=== PATIENT | female | born 1960 | race Caucasian/White ===

== ENCOUNTER 2017-04-29 17:27 | Inpatient (IN) | payer OTHER ==
[~2017-04-29] VITALS: Ht 162.6 cm; Wt 73.5 kg
[2017-04-29] MEDS ORDERED: ONDANSETRON 4 MG/2 ML VIAL IM PRN (19:45)
[2017-04-29] MEDS ORDERED: LORAZEPAM 1 MG TABLET PO PRN ×2 (19:45)
[2017-04-29] MEDS ORDERED: MIRALAX 17 GM POWD.PACK PO PRN (19:45)
[2017-04-29] MEDS ORDERED: DICYCLOMINE HCL 20 MG TABLET PO PRN (19:45)
[2017-04-29] MEDS ORDERED: ACETAMINOPHEN 325 MG TABLET PO PRN (19:45)
[2017-04-29] MEDS ORDERED: THIAMINE HCL 200 MG/2 ML VIAL IM ONE (19:45)
[2017-04-29] MEDS ORDERED: MAGNESIUM HYDROXIDE 30 ML LIQUID UDC PO PRN (19:45)
[2017-04-29] MEDS ORDERED: MAG HYDROX/AL HYDROX/SIMETH 30 ML LIQUID UDC PO PRN (19:45)
[2017-04-29] MEDS ORDERED: NICOTINE 14 MG/24HR PATCH TD PRN (19:45)
[2017-04-29] MEDS ORDERED: NICOTINE POLACRILEX 4 MG GUM-PK OF TEN BC PRN (19:45)
[2017-04-29] MEDS ORDERED: diphenhydrAMINE 50 MG CAPSULE PO PRN (19:45)
[2017-04-29] MEDS ORDERED: ONDANSETRON ODT 4 MG TAB.RAPDIS SL PRN (19:45)
[2017-04-29] MEDS ORDERED: LOPERAMIDE HCL 2 MG CAPSULE PO PRN ×2 (19:45)
[2017-04-29] MEDS ORDERED: LORAZEPAM 2 MG/1 ML VIAL IM PRN (19:45)
[2017-04-29 20:28] LABS: *URINE HCG, QUAL NEGATIVE (NEGATIVE)
[2017-04-29 20:30] VITALS: BP 154/90
[2017-04-29 20:31] LABS: BASOPHILS % (AUTO) 0.4 % (0.0-2.0); EOSINOPHILS # (AUTO) 0.1 K/uL (0.0-0.7); HEMATOCRIT 47.2 % (31.2-41.9); HEMOGLOBIN 16.4 g/dL (10.9-14.3); LYMPHOCYTES # (AUTO) 2.5 K/uL (20.0-40.0); LYMPHOCYTES % (AUTO) 23.8 % (20.5-51.5); MEAN CORPUSCULAR HGB CONC 35 g/dL (32.3-35.6); MEAN CORPUSCULAR VOLUME 92.1 fL (75.5-95.3); MONOCYTES # (AUTO) 0.9 K/uL (2.0-10.0); MONOCYTES % (AUTO) 8.4 % (0.0-11.0); NEUTROPHILS # (AUTO) 7.1 K/uL (1.8-8.9); NEUTROPHILS % (AUTO) 66.4 % (38.5-71.5); PLATELET COUNT (AUTO) 326 K/uL (179-408); RED BLOOD CELL COUNT(AUTO) 5.13 MIL/uL (3.63-4.92); WHITE BLOOD COUNT (AUTO) 10.6 K/uL (3.8-11.8)
[2017-04-29 20:35] LABS: *AMPHETAMINE, URINE NEGATIVE (NEGATIVE); *BARBITURATE, URINE NEGATIVE (NEGATIVE); *CANNABINOID, URINE NEGATIVE (NEGATIVE); *COCCAINE, URINE POSITIVE (NEGATIVE); *OPIATE, URINE NEGATIVE (NEGATIVE); *PHENCYCLIDINE SCREEN,URINE NEGATIVE (NEGATIVE)
--- NOTE | 2017-04-29 20:35 | NUR ---
PRE-ADMISSION NOTE Patient is a 57-year-old female seen at intake, alert and oriented x4, no SOB or chest pain reported at this time. Patient reports feeling tired and anxious. SN discussed admission policies with patient and briefly discussed unit policies. Patient is coherent and able to respond to questions appropriately. Patient is ambulatory with a steady gait. Vital signs taken, as follows: BP: 154/90, P: 93, R: 18, O2: 96%, T: 98.4, pain: 0/10. Patient verbalized understanding of instructions and teachings regarding: disposal of narcotics and other controlled home medications, unit protocols such as taking of vital signs Q4H and handling and disposal of contraband. SN will continue with admission upon pts arrival on the unit.
[2017-04-29 20:45] LABS: ETHANOL < 3 MG/DL (0-0)
[2017-04-29 20:52] LABS: ALANINE AMINOTRANSFERASE 38 U/L (14-59); ALKALINE PHOSPHATASE 185 U/L (50-136); AMYLASE 41 U/L (25-115); ASPARTATE AMINOTRANSFERASE 29 U/L (15-37); BILIRUBIN,TOTAL 0.5 mg/dL (0.2-1.0); CARBON DIOXIDE 30 mmol/L (21-32); CHLORIDE 99 mmol/L (98-107); GLUCOSE 140 mg/dL (74-106); MAGNESIUM 1.9 mg/dL (1.8-2.4); POTASSIUM 3.2 mmol/L (3.5-5.1); TOTAL PROTEIN, SERUM 8.4 g/dL (6.4-8.2); UREA NITROGEN, BLOOD 16 mg/dL (7-18)
[2017-04-29] MEDS: ATORVASTATIN 10 MG PO SCH (21:34)
--- NOTE | 2017-04-29 21:45 | NUR ---
ADMISSION NOTE Patient is a 57-year-old female admitted on 04/29/17 for ETOH dependence. She arrived on the unit at 2049. Patient was able to provide urine for UDS before arriving on the unit. Upon arrival to the unit, skin assessment and body check was completed. Patient is FULL code status, on a regular diet, with allergies to morphine. Patient reports a past medical history of anxiety, depression, HTN, GERD, fatty liver, herniated disk, hypercholesterolemia, rectal prolapsed, and has had 2 surgeries R/T her rectal prolapse. Patient denies seizure history. Vital signs are as follows: BP: 154/90, P: 93, R: 18, O2: 96%, T: 98.4, pain: 0/10. Patient is 55 and weighs 162 lbs. Patient reports she has a PCP in [place], where she is from. Patient states she smokes about a pack of cigarettes a day. Patient denies being hospitalized or in detention within the past 30 days. Patient brought omeprazole, hydrochlorothiazide, and atorvastatin from home stating that the last dose for each was yesterday. Substance Abuse History is as follows: 1. Beer 4-5 bottles/cans daily. Last intake of 2-3 cans was today, day of admission, about 4 hours before arrival. Patient has been drinking beer at this rate for about 2-3 years. 2. Vodka 400-500mL daily, last intake of 400mL was yesterday, 04/28/17. Patient has been drinking vodka at this rate for about 2-3 years. 3. Cocaine gram daily via smoke inhalation daily. Last intake of gram was 04/28/17. At this rate for 3-4 weeks. Patients longest period of sobriety was for 12, which ended 13 years ago. Since then, patient has been drinking larger amounts/daily every passing year. Patient reports that this is her first time in treatment, in detox of any kind. Patient reports that alcoholism runs in the family on both her mothers side and fathers side. Patient states that her brother and one of her sisters struggle with drug and alcohol (ETOH) abuse. Upon assessment, patient is alert and oriented x4, steady gait, no SOB or chest pain reported. Patient reports feeling very tired and moderate anxiety. Upon assessment of patients skin, two scabs were noted, one located at patients right upper back and the other at the patients lower back on the right-hand side. Patients respirations are even and unlabored. Bowel sounds are active x 4, abdomen soft and non-tender. PERRLA bilaterally. Pt denies SI/HI at this time. Educational information provided and left at bedside. Patient was oriented to room and unit and was encouraged to notify staff/nurse with any concerns or questions. Patient is on fall and seizure precautions, safety measures in place. Call light within reach, side rails up x 2, bed locked and in low position. Will continue to monitor.
[2017-04-29] MEDS ORDERED: LORAZEPAM 1 MG TABLET PO SCH (22:00)
[2017-04-29] MEDS ORDERED: POTASSIUM CHLORIDE 20 MEQ TAB.PRT.SR PO ONE (22:30)
[2017-04-30] VITALS: BP 148/88
[2017-04-30] MEDS ORDERED: HYDR25TA4 PO (02:53)
[2017-04-30] MEDS ORDERED: OMEP40CA37 PO (02:53)
[2017-04-30] MEDS ORDERED: ATOR10TA PO (02:54)
[2017-04-30 04:00] VITALS: BP 142/84
--- NOTE | 2017-04-30 04:00 | NUR ---
CIWA DEFERRED CIWA deferred due to patient asleep, to be assessed and scored while patient is awake. Patient's respirations are even and unlabored, 16/min. Safety measures in place, call light within reach. Will continue to monitor.
--- NOTE | 2017-04-30 07:10 | NUR ---
END OF SHIFT Patient is a 57-year-old female admitted on 04/29/17 for ETOH dependence and withdrawal, with concurrent use of cocaine for the past 4 weeks. Patient is FULL code status, on a regular diet with allergies to morphine. Patient has past medical history of anxiety, depression, HTN, GERD, fatty liver, herniated disk, hypercholesterolemia, rectal prolapsed, and has had 2 surgeries R/T her rectal prolapse. Patient denies seizure history. Patient is scheduled to start a 5-day Ativan taper today. Patient slept for 6 hours, total intake of 1,355 mL, void x2, stool x0. Patient received no PRNs. Last CIWA was 5. Patient is on fall and seizure precautions. Safety measures in place, bed locked in low position, side rails up x2, call light within reach. Will endorse to day shift.
--- NOTE | 2017-04-30 07:11 | NUR ---
Start of Shift Notes: Received report from night nurse. Patient is a 57 year old female admitted for ETOH and cocaine depednence who was placed on a 5-day Ativan taper as ordered. Allergic to morphine. FULL CODE. Regular diet. On fall and seizure precautions. Reports past medical hx of anxiety, depression, GERD, herniated disc, rectal prolapse, fatty liver, HTN and hypercholesterolemia. Patient is alert and oriented x 4. Verbally responsive. Appears drowsy upon waking. Noted with gross tremors and sweating. Educated patient on her current plan of care for the day and her medication regimen. Encouraged oral fluid intake and encouraged group participation to learn new skills to prevent relapse. Will continue to monitor.
[2017-04-30] MEDS: OMEPRAZOLE 40 MG PO SCH (07:16)
[2017-04-30] MEDS ORDERED: PARO40TA4 PO (07:51)
[2017-04-30] MEDS ORDERED: GABA-534 PO (07:51)
[2017-04-30 08:00] VITALS: BP 170/98
[2017-04-30] MEDS: LORAZEPAM 1 MG TABLET PO SCH ×3 (08:27→20:09)
[2017-04-30] MEDS: CLONIDINE HCL 0.1 MG TABLET PO PRN (08:27)
[2017-04-30] MEDS: THIAMINE HCL 100 MG TABLET PO SCH (08:27)
[2017-04-30] MEDS: FOLIC ACID 1 MG TABLET PO SCH (08:27)
[2017-04-30] MEDS: HYDROCHLOROTHIAZIDE 25 MG PO SCH (08:27)
[2017-04-30] MEDS: MULTIVITAMINS,THERAPEUTIC TABLET PO SCH (08:27)
--- NOTE | 2017-04-30 08:27 | NUR ---
Clonidine 0.1mg PO given: Patient's blood pressure 170/98, Pulse 82 while at rest. CIWA 12, noted with gross tremors, anxiety and sweating. Medicated patient with Clonidine 0.1mg PO as ordered. Will monitor for effectiveness.
[2017-04-30] MEDS ORDERED: TUBERCULIN,PURIF.PROT.DERIV. 5 TU/0.1 ML TEST ID ONE (09:00)
--- NOTE | 2017-04-30 09:27 | NUR ---
Re-assesment: Clonidine Patient's blood pressure 140/81, Pulse 81. Addendum: 04/30/17 at 1006 by CL MENDIOLA LVN PRN Clonidine was effective in reducing patient's blood pressure.
[2017-04-30 12:00] VITALS: BP 138/85
[2017-04-30] MEDS: AMLODIPINE 5 MG TABLET PO SCH (13:25)
[2017-04-30 16:00] VITALS: BP 126/78
--- NOTE | 2017-04-30 19:11 | NUR ---
End of Shift Notes: Patient initiated her 5-day Ativan taper today as ordered. Patient is tolerating taper well. No adverse reactions noted. VS monitored closely q 4 hours and PRN. Noted with BP at 0800 170/98, Pulse 82. Medicated patient with Clonidine 0.1 mg PO as ordered with help after 1 hour. Started on Norvasc as ordered. Withdrawal symptoms were closely monitored. Initial CIWA 12, patient presented with sweating, tremors, pupil dilation, fatigue, gross tremors, and elevated BP. Last CIWA 7. Per patient, Ativan has been effective in reducing her withdrawal symptoms. Denies S/I or H/I. No AV hallucinations noted. Unable to participate in group and activities due to her withdrawal symptoms. All needs met and attended. Will continue to monitor closely.
--- NOTE | 2017-04-30 19:15 | NUR ---
Start of Shift Note: Patient is a 57 y.o female admitted on 04/29/17 for Alcohol dependence. Patient reported drinking 4-5 beers and half a bottle of vodka daily for 2-3 years. Patient also reported using 0.5 grams of cocaine and intermittent use of Marijuana. Patient has PMHx of Anxiety, Depression, GERD, Herniated disk, Rectal prolapsed, Fatty liver, HTN, and Hypercholesterolemia. Patient is on a regular diet with allergies to Morphine. Full Code status. Patient is on a 5-day Ativan taper and tolerating well. Last CIWA is 7. Patient received PRN Clonidine during day shift. Patient is alert & oriented x4. No shortness of breath noted. Respiration even & unlabored. Abdomen soft & non-distended. No N/V/D noted. Patient denies any pain/discomfort. Slight sweating and bilateral hand tremors noted. Denies any hallucinations. Safety precautions are in place. Bed locked in lowest position. Both side rails up. Call light within pt's reach. Will continue to monitor patient.
[2017-04-30 20:00] VITALS: BP 114/68
[2017-04-30] MEDS: ATORVASTATIN 10 MG PO SCH (20:09)
[2017-04-30] MEDS: PAROXETINE HCL 20 MG TABLET PO SCH (20:09)
[2017-04-30] MEDS ORDERED: GABAPENTIN 300 MG PO SCH (21:00)
[2017-05-01 04:00] VITALS: BP 117/67
[2017-05-01] MEDS: OMEPRAZOLE 40 MG PO SCH (06:39)
[2017-05-01 06:49] LABS: BILIRUBIN,DIRECT 0.1 mg/dL (0.0-0.2); BILIRUBIN,TOTAL 0.4 mg/dL (0.2-1.0); CREATININE 0.7 mg/dL (0.6-1.3); MAGNESIUM 2.3 mg/dL (1.8-2.4); POTASSIUM 3.6 mmol/L (3.5-5.1); TOTAL PROTEIN, SERUM 7.3 g/dL (6.4-8.2)
--- NOTE | 2017-05-01 07:09 | NUR ---
End of Shift Note: Patient is a 57 y.o female admitted on 04/29/17 for Alcohol dependence. Pt continues her Ativan taper with no A/R noted and tolerating well. Pt reports that taper medication is effective in decreasing s/sx of withdrawal. Patient had an uneventful night. Patient presented with sweating, anxiety & fine tremors. Patient's Last CIWA is 6. No PRN medications received during my shift. Patient remained compliant with medications and treatment plan. Continued to monitor signs and symptoms of withdrawal. Patient remained stable with No s/s of distress noted. Patient slept for a total of 9 hours. Fluid intake: 500 ml. Voided 1x with no bowel movement. Encourage pt to increase fluid intake. All needs attended & met. Safety measures in place. Will endorse pt to day shift nurse.
--- NOTE | 2017-05-01 07:28 | NUR ---
START OF SHIFT Pt 57 y/o female admitted for etoh withdrawal. Pt received in room on bed with eyes closed resting, but easily arousable to name. Pt alert and oriented to name, place, and time. Perrla. Skin warm and slightly moist to touch. Respirations even and unlabored. Bilateral hand tremors noted slightly. It was reported that pt slept for 9 hours last night. Bed on lowest position with side rails x2 up for safety. Call light within reach. No distress noted at this time.
[2017-05-01 08:00] VITALS: BP 125/80
[2017-05-01] MEDS: AMLODIPINE 5 MG TABLET PO SCH (08:15)
[2017-05-01] MEDS: FOLIC ACID 1 MG TABLET PO SCH (08:15)
[2017-05-01] MEDS: MULTIVITAMINS,THERAPEUTIC TABLET PO SCH (08:15)
[2017-05-01] MEDS: HYDROCHLOROTHIAZIDE 25 MG PO SCH (08:15)
[2017-05-01] MEDS: THIAMINE HCL 100 MG TABLET PO SCH (08:15)
[2017-05-01] MEDS ORDERED: LORAZEPAM 1 MG TABLET PO SCH ×2 (09:00→21:00)
--- NOTE | 2017-05-01 10:54 | NUR ---
Therapist prompted client to attend daily group sessions. Client stated that she wants to attend but is not sure if she is feeling well enough too. Therapist informed client of group times.
[2017-05-01 12:01] VITALS: BP 127/68
[2017-05-01 12:09] LABS: HEPATITIS B SURFACE AG Negative (Negative)
[2017-05-01] MEDS: LORAZEPAM 1 MG TABLET PO SCH ×2 (12:13→16:28)
[2017-05-01 16:00] VITALS: BP 145/99
[2017-05-01] MEDS: CLONIDINE HCL 0.1 MG TABLET PO PRN (17:46)
--- NOTE | 2017-05-01 17:48 | NUR ---
PRN Pt with xb=598/99. Catapres po prn per MD order given and tolerated well.
--- NOTE | 2017-05-01 18:48 | NUR ---
PRN EVAL Pt with wk=272/86
--- NOTE | 2017-05-01 18:50 | NUR ---
END OF SHIFT Pt 57 y/o female admitted for withdrawal from etoh. Pt alert and oriented to name, place, and time. Perrla. Skin warm and slighlty moist to touch. Respirations even and unlabored. Bilateral hand tremors noted. Pt appears disheveled and slightly unkempt. Pt guarded on approach with blunt affect. Pt observed mostly isolative to room throughout the day. Pt attended group activity. Pt was seen by MD today. Pt medication compliant and tolerated well. No ASE noted. Bed on lowest position with side rails x2 up for safety. Call light within reach.
--- NOTE | 2017-05-01 19:15 | NUR ---
Start of Shift Note: Patient is a 57 y.o female admitted on 04/29/17 for Alcohol dependence. Patient reported drinking 4-5 beers and half a bottle of vodka daily for 2-3 years. Patient also reported using 0.5 grams of cocaine and intermittent use of Marijuana. Patient has PMHx of Anxiety, Depression, GERD, Herniated disk, Rectal prolapsed, Fatty liver, HTN, and Hypercholesterolemia. Patient is on a regular diet with allergies to Morphine. Full Code status. Patient is on a 5-day Ativan taper and tolerating well. No adverse reaction noted. Last CIWA is 5. Patient received PRN Clonidine during day shift for increased in BP. Patient is alert & oriented x4. No shortness of breath noted. Respiration even & unlabored. Abdomen soft & non-distended. Slight nausea noted. Patient presented sweating, 5/10 hips & leg pain, fine tremors & anxiety. Pt denies any hallucinations. Safety precautions are in place. Bed locked in lowest position. Both side rails up. Call light within pt's reach. Will continue to monitor patient.
[2017-05-01 20:00] VITALS: BP 121/79
[2017-05-01] MEDS: PAROXETINE HCL 20 MG TABLET PO SCH (20:30)
[2017-05-01] MEDS: IBUPROFEN 400 MG TABLET PO PRN (20:30)
--- NOTE | 2017-05-01 20:30 | NUR ---
PRN Motrin & Zofran Patient complained of slight nausea & 5/10 pain on her hips & legs. Patient observed in bed and seems restless. PRN Motrin PO & Zofran SL administered as ordered. Will monitor for effectiveness of medication.
[2017-05-01] MEDS: GABAPENTIN 300 MG CAP PO SCH (20:31)
[2017-05-01] MEDS: ATORVASTATIN 10 MG PO SCH (20:31)
--- NOTE | 2017-05-01 21:30 | NUR ---
PRN Reassessment Patient verbalized improved nausea and relief from pain after medication administration. Patient in stable condition. Safety precautions are in place. Will continue to monitor patient.
[2017-05-02] VITALS: BP 118/75
--- NOTE | 2017-05-02 04:00 | NUR ---
Vitals/ CIWA deferred Patient refused vitals at this time. Patient in bed with eyes closed. Patient is stable with no s/s of distress noted. Safety precautions are in place. Will continue to monitor patient.
[2017-05-02] MEDS: OMEPRAZOLE 40 MG PO SCH (06:34)
--- NOTE | 2017-05-02 07:00 | NUR ---
End of Shift Note: Patient is a 57 y.o female admitted on 04/29/17 for Alcohol dependence. Pt continues her Ativan taper with no A/R noted and tolerating well. Pt reports that taper medication is effective in decreasing s/sx of withdrawal. Patient had an uneventful night. Patient presented with generalized body aches, sweating, anxiety, nausea & fine tremors. Patient's Last CIWA is 8. Pt received PRN Motrin & Zofran. Patient remained compliant with medications and treatment plan. Continued to monitor signs and symptoms of withdrawal. Patient remained stable with No s/s of distress noted. Patient stayed in her room most of the night. Patient slept for a total of 9 hours. Fluid intake: 1055 ml. Voided 2x with no bowel movement. Encourage pt to increase fluid intake. All needs attended & met. Safety measures in place. Will endorse pt to day shift nurse.
--- NOTE | 2017-05-02 07:27 | NUR ---
Start of shift- Rcvd endorsement from ongoing nurse. Patient is a 57 y/o female admitted ETOH dependence. Pt on 5 day Ativan taper , started on 04/30/17, tolerating well. Pt appears to be sleeping, respirations even and unlabored. Patient had an uneventful night. At 1999 last CIWA is 8. Pt received PRN Motrin & Zofran. No s/s of distress noted. Patient slept for a total of 9 hours. Allergy to morphine., regular diet, full code. Safety measures in place. Bed lowest/locked position, side rails up X2, call light within reach. Will continue to monitor signs and symptoms of withdrawal.
[2017-05-02 08:01] VITALS: BP 134/66
[2017-05-02] MEDS: FOLIC ACID 1 MG TABLET PO SCH (08:16)
[2017-05-02] MEDS: THIAMINE HCL 100 MG TABLET PO SCH (08:16)
[2017-05-02] MEDS: LORAZEPAM 1 MG TABLET PO SCH ×3 (08:16→20:38)
[2017-05-02] MEDS: MULTIVITAMINS,THERAPEUTIC TABLET PO SCH (08:17)
[2017-05-02] MEDS: AMLODIPINE 5 MG TABLET PO SCH (08:17)
[2017-05-02] MEDS: GABAPENTIN 300 MG CAP PO SCH ×2 (08:17→20:38)
[2017-05-02] MEDS: IBUPROFEN 400 MG TABLET PO PRN ×2 (08:17→20:38)
[2017-05-02] MEDS: HYDROCHLOROTHIAZIDE 25 MG PO SCH (08:17)
--- NOTE | 2017-05-02 08:43 | NUR ---
PRN Motrin 400 mg PO for pain, c/o back pain #3/.
--- NOTE | 2017-05-02 09:12 | NUR ---
NSG ENTRY PROCESS CHECKER reported that pt states had an episode of dizziness. Pt brought to room and assisted to bed. O2=97% @ra P=78 HE=254/88 R=16. No distress noted at this time.
--- NOTE | 2017-05-02 09:43 | NUR ---
Reassess PRN Motrin effective. Pt states pain decreased to #1/10.
[2017-05-02 12:00] VITALS: BP 131/92
--- NOTE | 2017-05-02 15:14 | NUR ---
Therapist prompted client to attend daily group therapy sessions. Client stated that she would attend the next session.
[2017-05-02 16:00] VITALS: BP 157/97
[2017-05-02] MEDS: hydrALAZINE HCL 50 MG TABLET PO PRN (17:05)
--- NOTE | 2017-05-02 17:05 | NUR ---
CATAPRES Pt with ed=872/93. Last catapres 0.1mg po prn q6h bp>140/90 was given at 1216. made aware, and stated okay to hold off on catapres. Addendum: 05/02/17 at 1716 by JESUS SMITH RN INCORRECT PT.
--- NOTE | 2017-05-02 17:05 | NUR ---
PRN Hydralazine 50 mg po for BP 157/97, HR 98.
[2017-05-02] MEDS: HYDROXYZINE PAMOATE 25 MG CAPSULE PO PRN (17:29)
--- NOTE | 2017-05-02 17:30 | NUR ---
PRN Vistaril 25 mg PO for anxiety. Last CIWA 11 Addendum: 05/02/17 at 1740 by JESUS SMITH RN ADDITIONAL Pt was very anxious/ restless. made aware with new order for vistaril 25mg po prn anxiety q6h, noted and carried out.
--- NOTE | 2017-05-02 18:22 | NUR ---
Reassess- PRN Hydralazine 50 mg PO BP now 139/80, HR 88, medication effective. PRN Vistaril 25 mg, Pt reports she feels less anxious, medication effective.
--- NOTE | 2017-05-02 18:34 | NUR ---
End of shift- Patient is a 57 y/o female admitted ETOH dependence. Pt presents with flat affect and depressed mood. Pt on 5 day Ativan taper , started on 04/30/17. At 1600 CIWA 11. PRN per MD orders, hydralazine 50 mg for elevated BP >150/90, effective now BP 139/80, Vistaril 25 mg for anxiety, effective pt states relief. Pt was withdrawn and but participated in one group therapy meeting. Allergy to morphine, regular diet, full code. Adequate PO fluid intake of 1677ml, voids X 6, no BM. Safety measures in place. Safety measures in place. Bed lowest/locked position, side rails up X2, call light within reach. Will endorse to oncoming nurse.
--- NOTE | 2017-05-02 19:15 | NUR ---
Start of Shift Note: Patient is a 57 y.o female admitted on 04/29/17 for Alcohol dependence. Patient reported drinking 4-5 beers and half a bottle of vodka daily for 2-3 years. Patient also reported using 0.5 grams of cocaine and intermittent use of Marijuana. Patient has PMHx of Anxiety, Depression, GERD, Herniated disk, Rectal prolapsed, Fatty liver, HTN, and Hypercholesterolemia. Patient is on a regular diet with allergies to Morphine. Full Code status. Patient continues on a 5-day Ativan taper and tolerating well. No adverse reaction noted. Last CIWA is 11. Patient received PRN Hydralazine during day shift for increased in BP. Pt attended group during the day. Patient is alert & oriented x4. No shortness of breath noted. Respiration even & unlabored. Abdomen soft & non-distended. No N/V/D noted. Patient presented with sweating, fine tremors , anxiety & mild headache. Pt denies any hallucinations. Safety precautions are in place. Bed locked in lowest position. Both side rails up. Call light within pt's reach. Will continue to monitor patient.
[2017-05-02 20:00] VITALS: BP 124/85
[2017-05-02] MEDS: ATORVASTATIN 10 MG PO SCH (20:38)
[2017-05-02] MEDS: PAROXETINE HCL 20 MG TABLET PO SCH (20:38)
--- NOTE | 2017-05-02 20:38 | NUR ---
PRN Motrin Patient complained of hip and leg pain. PRN Motrin administered as ordered. Will monitor for effectiveness of medication.
--- NOTE | 2017-05-02 21:38 | NUR ---
PRN Reassessment Patient verbalized relief from body aches. Patient in bed and appears comfortable. No facial grimacing noted. Safety precautions are in place. Will continue to monitor patient.
[2017-05-03] MEDS: OMEPRAZOLE 40 MG PO SCH (06:39)
--- NOTE | 2017-05-03 07:07 | NUR ---
End of Shift Note: Patient is a 57 y.o female admitted on 04/29/17 for Alcohol dependence. Pt continues her Ativan taper with no A/R noted and tolerating well. Pt reports that taper medication is effective in decreasing s/sx of withdrawal. Patient had an uneventful night. Patient presented with body aches, sweating, anxiety, mild headache & fine tremors. Patient's Last CIWA is 6. Pt received PRN Motrin for headache and body aches & was effective. Patient remained compliant with medications and treatment plan. Continued to monitor signs and symptoms of withdrawal. Patient remained stable with No s/s of distress noted. Patient stayed in her room most of the night. Patient slept for a total of 7 hours. Fluid intake: 1105 ml. Voided 2x with no bowel movement. Encourage pt to increase fluid intake. All needs attended & met. Safety measures in place. Will endorse pt to day shift nurse.
--- NOTE | 2017-05-03 07:20 | NUR ---
Start of shift- Rcvd endorsement from ongoing nurse. Patient is a 57 y/o female admitted ETOH dependence. Pt on 5 day Ativan taper , started on 04/30/17, tolerating well. Pt appears to be sleeping, respirations even and unlabored. Patient had an uneventful night. At 1999 last CIWA is 6. Pt received PRN Motrin. No s/s of distress noted. Patient slept for a total of 7 hours. Allergy to morphine., regular diet, full code. Safety measures in place. Bed lowest/locked position, side rails up X2, call light within reach. Will continue to monitor signs and symptoms of withdrawal.
[2017-05-03 08:00] VITALS: BP 136/82
[2017-05-03] MEDS: LORAZEPAM 1 MG TABLET PO SCH ×2 (08:20→20:22)
[2017-05-03] MEDS: MULTIVITAMINS,THERAPEUTIC TABLET PO SCH (08:20)
[2017-05-03] MEDS: FOLIC ACID 1 MG TABLET PO SCH (08:20)
[2017-05-03] MEDS: AMLODIPINE 5 MG TABLET PO SCH (08:21)
[2017-05-03] MEDS: HYDROCHLOROTHIAZIDE 25 MG PO SCH (08:21)
[2017-05-03] MEDS: GABAPENTIN 300 MG CAP PO SCH (08:21)
[2017-05-03] MEDS: THIAMINE HCL 100 MG TABLET PO SCH (08:21)
--- NOTE | 2017-05-03 10:03 | NUR ---
Therapist prompted client about group times. Client stated she would attend all groups today.
[2017-05-03 12:00] VITALS: BP 170/87
[2017-05-03] MEDS: hydrALAZINE HCL 50 MG TABLET PO PRN (12:53)
[2017-05-03] MEDS: HYDROXYZINE PAMOATE 25 MG CAPSULE PO PRN ×2 (12:53→19:19)
--- NOTE | 2017-05-03 12:53 | NUR ---
PRN Hydralazine 50mg PO for BP 152/85, Vistaril 25mg PO for anxiety, MB increase P 90, difficulty concentrating. Call light within reach. Will continue to monitor.
[2017-05-03 13:53] VITALS: BP 116/68
--- NOTE | 2017-05-03 13:53 | NUR ---
Reassess-Pt BP improved after Hydalazine now 116/86. Pt reports anxiety improved after Vistaril. Medication effective.
[2017-05-03] MEDS: GABAPENTIN 300 MG CAPSULE PO SCH ×2 (14:32→20:22)
[2017-05-03 16:00] VITALS: BP 145/86
--- NOTE | 2017-05-03 18:35 | NUR ---
End of shift- Patient is a 57 y/o female admitted ETOH dependence. Pt presents with flat affect and depressed mood. Pt on 5 day Ativan taper , started on 04/30/17. At 1600 CIWA 8. PRN per MD orders, hydralazine 50 mg for elevated BP >150/90, Vistaril 25 mg for anxiety, effective, BP WNL and pt states relief of anxiety. Pt was withdrawn and but participated in one group therapy meeting. Allergy to morphine, regular diet, full code. Adequate PO fluid intake of 1855 ml, voids X 6, no BM. Safety measures in place. Safety measures in place. Bed lowest/locked position, side rails up X2, call light within reach. Will endorse to oncoming nurse.
--- NOTE | 2017-05-03 19:15 | NUR ---
START OF SHIFT Received 57 year old female patient admitted on 04/29/17 for ETOH , Cocaine and Cannabis dependency. Pt is full code with allergy to morphine. She reports a PMHx of anxiety, depression, GERD, herniated disc, 2 surgeries r/t rectal prolapse, hypertension and hypercholesterolemia. Pt reports using ETOH "4-5 beers" and half bottle of vodka for 2-3 years. Last dose was " couple beers" on 04/29/17. Cocaine 1/2 gram for 3-4 weeks. Last dose was 1/2 gram on 04/28/17. And intermittent use of cannabis. She is currently on day 4/5 of her Ativan taper and is tolerating well. Per endorsement, pt received PRN Vistaril and hydralazine. Pt is alert and oriented x4, breathing is even and unlabored. Safety measures in place. Will continue to monitor.
[2017-05-03] MEDS: IBUPROFEN 400 MG TABLET PO PRN (19:19)
--- NOTE | 2017-05-03 19:19 | NUR ---
PRN MOTRIN/VISTARIL Pt complains of headache 9/10 and anxiety. PRN Motrin and Vistaril administered as ordered. Safety measures in place. Will monitor effectiveness.
[2017-05-03 20:00] VITALS: BP 122/89
--- NOTE | 2017-05-03 20:19 | NUR ---
PRN REASSESSMENT PRN medications effective. Pt reports headache 4/10 and decrease in anxiety. Safety measures in place. Will continue to monitor.
[2017-05-03] MEDS: PAROXETINE HCL 20 MG TABLET PO SCH (20:22)
[2017-05-03] MEDS: ATORVASTATIN 10 MG PO SCH (20:23)
--- NOTE | 2017-05-04 | NUR ---
VITALS REFUSED, CIWA DEFERRED 0000 vitals refused by pt. CIWA deferred d/t pt lying in bed with eyes closed noted to be asleep. Safety measures in place. Will continue to monitor.
--- NOTE | 2017-05-04 04:00 | NUR ---
VITALS REFUSED, CIWA DEFERRED 0400 vitals refused by pt. CIWA deferred d/t pt lying in bed with eyes closed noted to be asleep. Safety measures in place. Will continue to monitor.
[2017-05-04] MEDS: OMEPRAZOLE 40 MG PO SCH (06:46)
--- NOTE | 2017-05-04 07:05 | NUR ---
END OF SHIFT Pt remains alert and oriented x4. She is currently on day 5/ of her Ativan taper and is tolerating well. She complained of headache and anxiety and received PRN Vistaril and Motrin. She slept a total of 7hrs, Intake: 1105 mL, Void:x3, BM:0, CIWA: 7. Breathing is even and unlabored. Safety measures in place. Will endorse to AM shift.
--- NOTE | 2017-05-04 07:10 | NUR ---
Start Of Shift Received report from rn shift mgr nurse. Pt is a 57 year old female admitted on 04/29/17 for ETOH , Cocaine and Cannabis dependency. Pt is full code reports allergy to morphine. PMHx of anxiety, depression, GERD, herniated disc, 2 surgeries r/t rectal prolapse, hypertension and hypercholesterolemia. Pt is on her last day of the 5 day Ativan taper, Her last CIWA was a 7 at 0400. Pt is alert and orientedX4 Ambulatory. Pt received PRN Motrin and Vistaril last night, which were effective. Pt encouraged to drink plenty of fluids to help facilitate the detox process. All safety measures in place, call light within reach, bed in lowest locked position. Will continue to monitor pt and provide care.
[2017-05-04 08:00] VITALS: BP 151/75
[2017-05-04] MEDS ORDERED: LORAZEPAM 1 MG TABLET PO SCH (09:00)
[2017-05-04] MEDS: AMLODIPINE 5 MG TABLET PO SCH (09:57)
[2017-05-04] MEDS: THIAMINE HCL 100 MG TABLET PO SCH (09:58)
[2017-05-04] MEDS: MULTIVITAMINS,THERAPEUTIC TABLET PO SCH (09:58)
[2017-05-04] MEDS: GABAPENTIN 300 MG CAPSULE PO SCH ×3 (09:58→20:59)
[2017-05-04] MEDS: HYDROCHLOROTHIAZIDE 25 MG PO SCH (09:58)
[2017-05-04] MEDS: FOLIC ACID 1 MG TABLET PO SCH (09:58)
--- NOTE | 2017-05-04 10:28 | NUR ---
Therapist prompted client about group times. Client stated she would attend all groups today.
[2017-05-04 12:00] VITALS: BP 160/99
[2017-05-04] MEDS ORDERED: HYDR-3895 PO (14:44)
[2017-05-04] MEDS ORDERED: AMLO10TA2 PO (14:44)
[2017-05-04] MEDS ORDERED: CLON0.1T14 PO (14:44)
[2017-05-04] MEDS ORDERED: GABA-534 PO ×2 (14:44)
[2017-05-04] MEDS ORDERED: DIPH50CA37 PO (14:44)
[2017-05-04 16:00] VITALS: BP 142/97
--- NOTE | 2017-05-04 18:58 | NUR ---
End Of Shift Pt is a 57 year old female admitted on 04/29/17 for ETOH , Cocaine and Cannabis dependency. Pt is full code reports allergy to morphine. PMHx of anxiety, depression, GERD, herniated disc, 2 surgeries r/t rectal prolapse, hypertension and hypercholesterolemia. Pt is on her last day of the 5 day Ativan taper, VS monitored closely q 4 hours. Withdrawal symptoms were closely monitored. Initial COWS 5. Patient encouraged adequate PO fluid intake as tolerated. Patient presented with tremors and anxiety during the day. Last COWS 4. Per patient, Subutex has been helping him with his withdrawal symptoms. Pt ate all of his meals. Pt received PRN Clonidine 0.1mg which was effective. Patient encouraged to attend group therapies/sessions to learn new coping skills to recent relapse, patient denies SI/HI. Participated in group and therapy sessions. All needs met and attended
--- NOTE | 2017-05-04 18:58 | NUR ---
START OF SHIFT NOTE: 57 year old female presented in [facility] since 04/29/2017 for Alcohol, Cocaine, and Cannabis dependence. Patient completed 5 Day Ativan Taper. Patient tolerated well without ASE. Patient remains compliant with treatment plan, medications, and diet regime. Patient reports Allergy to Morphine, is on , Full Code, Regular Diet, Fall and Seizures Precautions. Patient denies Seizures History. PMH: Anxiety, Depression, HTN, Hypercholesterolemia, GERD, Fatty Liver, Herniated disk, Rectal prolapsed: 2 surgery done r/t rectal prolapsed. Upon endorsement patient is alert and oriented x4, with stable gait. Speech is soft and clear. CIWA 7: patient presented with anxiety, agitation, nervousness, tremors, and sweating. Respirations unlabored and even. Lungs Sounds are clear thoroughly. Abdomen is soft, non-tender. Bowels Sounds presents in all x4 quadrants. Skin is intact, warm, and dry. Patient's healed scabs on Right shoulder, and on Right Lower Back. Encouraged to fluids intake as tolerated. Encouraged to attending groups activities. Patient is scheduled for discharging tomorrow @ 0900. All needs met. Safety measures in place: Call light within reach, bed locked, and in lowest position, padded bed rails up x2. Patient endorsed by day shift nurse, report received.
[2017-05-04 20:00] VITALS: BP 147/94
[2017-05-04] MEDS: PAROXETINE HCL 20 MG TABLET PO SCH (20:58)
[2017-05-04] MEDS ORDERED: AMLODIPINE 5 MG TABLET PO SCH (21:00)
[2017-05-04] MEDS: ATORVASTATIN 10 MG PO SCH (21:15)
[2017-05-05] VITALS: BP 154/94
[2017-05-05] MEDS: hydrALAZINE HCL 50 MG TABLET PO PRN (00:47)
--- NOTE | 2017-05-05 00:47 | NUR ---
PRN APRESOLINE (HYDRALAZINE HCL 50 MG TAB) 50 MG 1 TAB PO ADMINISTRATION PRN APRESOLINE (HYDRALAZINE HCL 50 MG TAB) 50 MG 1 TAB PO ADMINISTRATED FOR BP: 154/94 ORDERED. PATIENT TOLERATED WELL. ALL NEEDS MET. SAFETY MEASURES ON PLACE. CALL LIGHT WITHIN REACH, BED IN LOWEST POSITION, AND LOCKED, PADDED RAILS UP BILATERALLY. WILL CONTINUE TO MONITOR CLOSELY.
--- NOTE | 2017-05-05 00:51 | NUR ---
BENADRYL 50 MG 1 CAP FOR INSOMNIA ADMINISTRATION PATIENT C/O INSOMNIA AND ASKED AID. PRN BENADRYL 50 MG 1 CAP FOR INSOMNIA ADMINISTRATED TO PATIENT ORDERED. PATIENT TOLERATED WELL. ALL NEEDS MET. SAFETY MEASURES ON PLACE. CALL LIGHT WITHIN REACH, BED IN LOWEST POSITION, LOCKED, PADDED RAILS UP BILATERALLY. WILL CONTINUE TO MONITOR CLOSELY.
--- NOTE | 2017-05-05 01:47 | NUR ---
RE-ASSESSMENT BP decreased from 154/94 to 135/83. PRN Apresoline (HydrALAZINE) administrated @0047 was effective. All needs met. Safety measures on place. Call light within reach, bed in lowest position and locked, padded rails up bilaterally. Will continue to monitor closely.
--- NOTE | 2017-05-05 01:51 | NUR ---
RE-ASSESSMENT Patient is sleeping. Respirations even and unlabored. RR 15. PRN Benadryl 50 mg 1 capsule for insomnia administrated @0051 was effective. All needs met. Safety measures on place. Call light within reach, bed in lowest position and locked, padded rails up bilaterally. Will continue to monitor closely
[2017-05-05 04:00] VITALS: BP 117/75
[2017-05-05] MEDS: OMEPRAZOLE 40 MG PO SCH (06:25)
--- NOTE | 2017-05-05 06:45 | NUR ---
END OF SHIFT NOTE: Patient is 57 year old female presented in [facility] since 04/29/2017 for Alcohol, Cocaine, and Cannabis dependence. Patient completed 5 Day Ativan Taper. Patient tolerated well without ASE. Patient reports Allergy to Morphine, is on Regular Diet, Full Code, Fall and Seizures Precautions. Patient denies Seizures History. PMH: Anxiety, Depression, HTN, Hypercholesterolemia, GERD, Fatty Liver, Herniated disk, Rectal prolapsed: 2 surgery done r/t rectal prolapsed. Last CIWA 3 @0400: Patient presented with mild anxiety, agitation, barely sweating, and tremors, that can be felt. CIWA taken when patient's awake during night. Last VS @0400: T: 97.9, BP:117/75, HR: 63, RA: SPO2 99%, RR: 16, pain level "0/10". Patient denies SI/HI. Respirations unlabored and even. Skin is warm and dry. Patient's healed scabs on Right shoulder, and on Right Lower Back. Pictures placed in chart. PRN Apresoline (Hydralazine) administrated for hypertension @0047, and PRN Benadryl 50 mg 1 capsule administrated for insomnia @0051 were effective. Patient remains compliant with treatment plan, medications, and diet regime. Patient slept 5 hours, intake 1,105 ml, voided x2. Encouraged to fluids intake as tolerated. Patient is scheduled for discharging today @ 0900. All needs met. Safety measures in place: Call light within reach, bed locked, and in lowest position, padded bed rails up bilaterally. Patient endorsed to day shift nurse, report given.
--- NOTE | 2017-05-05 07:10 | NUR ---
Start of Shift Report from the night nurse: pt is a 57 y/o female here for Etoh, Cocaine and Cannabis; 5 day Ativan taper complete and orders for d/c today. Pt is a full code, allergic to morphine, regular diet, fall and seizure precautions ordered. HHx: Anxiety depression, GERD, herniated disk, rectal prolapse (surgery x2), fatty liver, HTN, HLD. This is the first time doing detox. V/S stable. Skin is not intact with scabs on the upper left shoulder and right lower back. Pt is awake and getting ready for d/c. Last CIWA 4. Will cont.to monitor the pt.
[2017-05-05 08:01] VITALS: BP 105/56
[2017-05-05 08:24] VITALS: BP 105/56
[2017-05-05] MEDS: GABAPENTIN 300 MG CAPSULE PO SCH (08:24)
[2017-05-05] MEDS: MULTIVITAMINS,THERAPEUTIC TABLET PO SCH (08:25)
[2017-05-05] MEDS: HYDROCHLOROTHIAZIDE 25 MG PO SCH (08:25)
[2017-05-05] MEDS: THIAMINE HCL 100 MG TABLET PO SCH (08:25)
[2017-05-05] MEDS: FOLIC ACID 1 MG TABLET PO SCH (08:25)
--- NOTE | 2017-05-05 08:42 | NUR ---
Discharge Pt is A&Ox4 ambulatory independently. Features symmetrical, PERRLA 3mm, no PARKER or dizziness noted. Pt denies chest pain, pulses present on BLE's and BUE's. No SOB or respiratory distress noted. Pt voided independently. No BM during my shift. Pt is stable. V/S stable. Pt has no s/sx of w/d's noted. Pt is given belongings with d/c summary report, written Rx and home meds. Pt is chaperoned to the lobby and transported to the [facility] with the [facility].
[2017-05-05] MEDS ORDERED: AMLODIPINE 10 MG TABLET PO SCH (09:00)
== END 2017-05-05 09:42 | disposition other institution (70) | DRG 895 ==
LOC: SRC 19:13
PROVIDERS: ADMIT Internal Medicine; ATTEND Internal Medicine
PROC: HZ31ZZZ Individual Counseling for Substance Abuse Treatment, Behavioral (ICD-10-PCS; principal; 2017-04-29)
PROC: HZ41ZZZ Group Counseling for Substance Abuse Treatment, Behavioral (ICD-10-PCS; principal; 2017-04-29)
PROC: HZ2ZZZZ Detoxification Services for Substance Abuse Treatment (ICD-10-PCS; principal; 2017-04-29)
DX: F10.232 Alcohol dependence with withdrawal with perceptual disturbance (principal); F14.20 Cocaine dependence, uncomplicated; I15.9 Secondary hypertension, unspecified; F33.1 Major depressive disorder, recurrent, moderate; E87.6 Hypokalemia; Y90.9 Presence of alcohol in blood, level not specified; F17.210 Nicotine dependence, cigarettes, uncomplicated; E78.5 Hyperlipidemia, unspecified; K21.9 Gastro-esophageal reflux disease without esophagitis; F41.9 Anxiety disorder, unspecified; Z81.1 Family history of alcohol abuse and dependence; Z81.8 Family history of other mental and behavioral disorders; Z82.49 Family history of ischemic heart disease and other diseases of the circulatory system; N95.9 Unspecified menopausal and perimenopausal disorder; R74.8 Abnormal levels of other serum enzymes
CPT/HCPCS: 36415; 70030-TC; 80307; 80353; 83735; 84703; 85025; 86580; 86592; 86705; 86803; 87340; 87806; A4663; G0480; J3411; Q0162; Q0163